=== PATIENT | female | born 1990 | race Caucasian/White ===

== ENCOUNTER 2018-05-26 09:39 | Emergency (ER) | payer OTHER ==
--- OUTSIDE RECORDS SUMMARY | 2018-05-26 09:45 | XMS REPORT | Clinical Summary ---
:1990 Author Organization [facility] Address [address] [place] [address] Care Team Providers Name Role Phone Tip Duran MD Primary Care Provider Allergies No Known Allergies Medications Medication Sig Dispensed Refills Start End Date Status Date dextroamphetamine- Take 20 mg by 0 Active amphetamine mouth daily. (ADDERALL) 20 mg tablet PNV NO.95/FERROUS Take by mouth. 0 Active FUM/FOLIC AC ( MULTIVITAMINS ORAL) CALCIUM CARB/VIT Take by mouth. 0 Active D3/MINERALS (CALCIUM-VITAMIN D ORAL) FERROUS SULFATE Take by mouth. 0 Active (IRON ORAL) ASCORBATE CALCIUM Take by mouth. 0 Active (VITAMIN C ORAL) omega-3s/dha/epa/f Take 1 capsule by 0 Active rio oil/D3 mouth daily. (VITAMIN-D + OMEGA-3 ORAL) UNABLE TO FIND Take 1 tablet by 0 Active mouth daily. OTC antihistamine L. rhamnosus Take 1 tablet by 0 Active GG/inulin mouth daily. (CULTURELLE PROBIOTICS ORAL) etonogestrel-ethin Insert 1 each 0 Active yl estradiol into the vagina (NUVARING) every 28 days. 0.12-0.015 mg/24 Insert vaginally hr vaginal ring and leave in place for 3 consecutive weeks, then remove for 1 week. cyanocobalamin Inject 1 mL 1 mL Active 1,000 mcg/mL (1,000 mcg total) 8 injectionIndicatio into the ns: Status post shoulder, thigh, bariatric surgery or buttocks every 30 (thirty) days. syringe-needle,saf 1 Syringe every 1 Syringe Active ety,disp unt 3 mL 30 (thirty) days. 8 23 gauge x 1 1/2" syringeIndications : Status post bariatric surgery omeprazole TAKE ONE CAPSULE 90 capsule 0 Active (PriLOSEC) 40 MG BY MOUTH DAILY 8 capsule ursodiol TAKE ONE CAPSULE 180 capsule 0 Active (ACTIGALL) 300 mg BY MOUTH TWICE A 8 capsule DAY metFORMIN Take 500 mg by 0 08/25/19 Discontinued (GLUCOPHAGE) 500 mouth daily with 18 mg tablet breakfast. norgestimate-ethin Take 1 tablet by 0 12/16/19 Discontinued yl estradiol mouth daily. 18 (SPRINTEC, 28,) 0.25-35 mg-mcg per tablet ursodiol Take 1 capsule 180 capsule 1 01/21/20 Discontinued (ACTIGALL) 300 mg (300 mg total) by 8 18 capsule mouth 2 (two) times a day for 180 days. omeprazole Take 1 capsule 90 capsule 1 01/10/20 Discontinued (PriLOSEC) 40 MG (40 mg total) by 8 18 capsule mouth daily for 180 days. enoxaparin Inject 0.4 mL (40 5.6 mL 0 07/29/19 (LOVENOX) 40 mg total) under 8 18 mg/0.4 mL syringe the skin daily for 14 days. traMADol (ULTRAM) Take 1 tablet (50 30 tablet 0 07/29/19 50 mg tablet mg total) by 8 18 mouth every 6 (six) hours as needed for moderate pain for up to 14 days. Saccharomyces Take 250 mg by 0 08/24/19 Discontinued boulardii mouth 2 (two) 18 (FLORASTOR) 250 mg times a day. capsule traMADol (ULTRAM) Take 1 tablet (50 21 tablet 0 09/01/19 50 mg tablet mg total) by 8 18 mouth every 6 (six) hours as needed for moderate pain for up to 7 days. enoxaparin Inject 0.4 mL (40 5.6 mL 0 09/08/19 (LOVENOX) 40 mg total) under 8 18 mg/0.4 mL syringe the skin daily for 14 days. ondansetron ODT Take 1 tablet (4 10 tablet 0 09/24/19 (ZOFRAN ODT) 4 MG mg total) by 8 18 disintegrating mouth every 8 tablet (eight) hours as needed for nausea or vomiting for up to 30 days. Active Problems Problem Noted Date S/P gastric bypass 03/15/2018 Last Assessment & Plan: The patient is doing very well status post. After bypass. The patient has lost 81 pounds in 6.6 months. The patient's labs were reviewed and no correction's were needed. The patient's weight goal of 160 pounds at her next visit in 6 months. Surgery follow-up examination 09/23/2017 Last Assessment & Plan: The patient will continue a regular bariatric diet. Increase water intake to at least 64 fluid ounces per day. She is instructed to continue her current exercise routine for at least 30 minutes per day. Lab results were discussed with Patient in detail. Bariatric labs ordered for next follow-up visit. Orders for monthly b12 injection sent to patient pharmacy. Weight goal of 175lbs at next visit. Livan gorman verbalized understanding and her questions were answered to her satisfaction. Patient was examined and evaluated with Dr. Valentin and he agrees with the above plan. Return to clinic in 3 months for next follow-up visit. Resolved Problems Problem Noted Date Resolved Date Morbid obesity with BMI of 40.0-44.9, adult 03/30/2017 12/15/2017 Last Assessment & Plan: The patient is tried and failed multiple nonsurgical attempts at weight loss and has recently finished her nutrition, and psychological preoperative appointments. Risks and benefits of a Geoff-en-Y gastric bypass were discussed with the patient and the patient agreed to proceed. The patient was given her preoperative Prilosec, Actigall, Lovenox, as well as tramadol. The patient was also given instructions on the day of surgery. Encounters Date Type Specialty Care Team Description 04/30/2018 Refill General Surgery Jasbir Valentin MD 04/06/2018 Refill General Surgery Jasbir Valentin MD 03/09/2018 Office Visit General Jasbir Padron, S/P gastric bypass (Primary Dx) 01/20/2018 Jasbir Haynes MD 01/09/2018 Jagdeep General Jasbir Padron MD 12/15/2017 Office Visit General Jasbir Padron, Status post bariatric surgery (Primary Dx); Surgery follow-up examination 11/22/2017 Orders Only General Surgery Crocker, Jeri, Bariatric surgery MA status (Primary Dx) 09/22/2017 Office Visit General Surgery Jasbir Valentin, Follow-up exam (Primary Dx) 09/01/2017 Office Visit General Surgery Jasbir Valentin, S/P gastric bypass (Primary Dx) 08/24/2017 Patient Outreach Quality Roxanne Montes De Oca RN 08/23/2017 Anesthesia Event General Surgery Gale Solis, DISTRIBUTION TECH 08/23/2017 Surgery General Surgery Jasbir Valentin, GASTROENTEROSTOMY, GEOFF-EN-Y, LAPAROSCOPIC INTRAOPERATIVE EGD 08/23/2017 - Hospital Encounter General Surgery Jasbir Valentin, 08/24/2017 08/09/2017 Pre-Admit Testing Pre-Admission Jasbir Valentin, Morbid obesity ( Primary Dx); Appointment Testing Morbid obesity due to excess calories 08/02/2017 Transcribe Orders General Surgery Josep Carballo MA 07/14/2017 Office Visit General Surgery Jasbir Valentin, Morbid obesity due to excess calories (Primary Dx); Morbid obesity with BMI of 40.0-44.9, adult 07/14/2017 Refill General Surgery Jasbir Valentin MD 06/16/2017 Consult Weight Management Jasbir Valentin, Morbid obesity (Primary Dx) Rolanda Zaragoza, ABDIRAHMAN after 05/25/2017 Family History Medical History Relation Name Comments Hypertension Brother Obesity Brother GERD Father Sleep apnea Father Heart attack Maternal Grandfather Hypertension Maternal Grandfather Heart failure Maternal Grandmother Hypertension Maternal Grandmother Hypertension Mother Obesity Mother Hypertension Paternal Grandfather Prostate cancer Paternal Grandfather Skin cancer Paternal Grandfather Diabetes Paternal Grandmother Hypertension Paternal Grandmother Relation Name Status Comments Brother Alive Father Alive Maternal Grandfather Maternal Grandmother Mother Alive Paternal Grandfather Alive Paternal Grandmother Alive Social History Tobacco Use Types Packs/Day Years Used Date Never Smoker Smokeless Tobacco: Never Used Tobacco Cessation: Counseling Given: No Alcohol Use Drinks/Week oz/Week Comments Yes 1-2 Standard drinks or equivalent 0.6 - 1.2 social 1-2 per week Sex Assigned at Date Recorded Not on file Job Start Date Occupation Industry Not on file Not on file Not on file Travel History Travel Start Travel End No recent travel history available. Last Filed Vital Signs Vital Sign Reading Time Taken Blood Pressure 109/60 03/09/2018 12:26 PM [facility] Pulse 63 03/09/2018 12:26 PM [facility] Temperature 36.4 C (97.5 F) 03/09/2018 12:26 PM [facility] Respiratory Rate 16 03/09/2018 12:26 PM [facility] Oxygen Saturation 98% 08/24/2017 7:05 AM CDT Inhaled Oxygen Concentration - - Weight 82.1 kg (181 lb) 03/09/2018 12:26 PM [facility] Height 170.2 cm (5' 7") 03/09/2018 12:26 PM [facility] Body Mass Index 28.35 03/09/2018 12:26 PM [facility] Plan of Treatment Date Type Specialty Care Team Description 09/07/2018 Office Visit General Surgery Jasbir Valentin MD [address] [address] Health Maintenance Due Date Last Done Comments DIABETIC RETINAL EYE EXAM 1990 DIABETIC FOOT EXAM 2000 URINE MICROALBUMIN 2000 CERVICAL CANCER SCREENING 2011 INFLUENZA VACCINE 10/26/2017 Procedures Procedure Name Priority Date/Time Associated Comments Diagnosis T3 Routine 02/25/2018 10:54 Status post Results for this AM [facility] bariatric surgery procedure are in the results section. ZINC LEVEL, SERUM Routine 02/25/2018 10:54 Status post Results for this AM [facility] bariatric surgery procedure are in the results section. VITAMIN B1 LEVEL, Routine 02/25/2018 10:54 Status post Results for this WHOLE BLOOD AM [facility] bariatric surgery procedure are in the results section. FERRITIN LEVEL Routine 02/25/2018 10:54 Status post Results for this AM [facility] bariatric surgery procedure are in the results section. FOLATE LEVEL Routine 02/25/2018 10:54 Status post Results for this AM [facility] bariatric surgery procedure are in the results section. COPPER LEVEL, SERUM Routine 02/25/2018 10:54 Status post Results for this AM [facility] bariatric surgery procedure are in the results section. VITAMIN D 25 HYDROXY Routine 02/25/2018 10:54 Status post Results for this LEVEL AM [facility] bariatric surgery procedure are in the results section. VITAMIN B12 LEVEL Routine 02/25/2018 10:54 Status post Results for this AM [facility] bariatric surgery procedure are in the results section. VITAMIN A LEVEL, Routine 02/25/2018 10:54 Status post Results for this PLASMA OR SERUM AM [facility] bariatric surgery procedure are in the results section. CBC WITH PLATELET AND Routine 02/25/2018 10:54 Status post Results for this DIFFERENTIAL AM [facility] bariatric surgery procedure are in the results section. PARATHYROID HORMONE Routine 02/25/2018 10:54 Status post Results for this AM [facility] bariatric surgery procedure are in the results section. HEMOGLOBIN A1C Routine 02/25/2018 10:54 Status post Results for this AM [facility] bariatric surgery procedure are in the results section. THYROID STIMULATING Routine 02/25/2018 10:54 Status post Results for this HORMONE AM [facility] bariatric surgery procedure are in the results section. T4, FREE Routine 02/25/2018 10:54 Status post Results for this AM [facility] bariatric surgery procedure are in the results section. TOTAL IRON BINDING Routine 02/25/2018 10:54 Status post Results for this CAPACITY AM [facility] bariatric surgery procedure are in the results section. LIPID PANEL Routine 02/25/2018 10:54 Status post Results for this AM [facility] bariatric surgery procedure are in the results section. COMPREHENSIVE Routine 02/25/2018 10:54 Status post Results for this METABOLIC PANEL AM [facility] bariatric surgery procedure are in the results section. T3 Routine 12/03/2017 9:46 Bariatric surgery Results for this AM CDT status procedure are in the results section. ZINC LEVEL, SERUM Routine 12/03/2017 9:46 Bariatric surgery Results for this AM CDT status procedure are in the results section. VITAMIN B1 LEVEL, Routine 12/03/2017 9:46 Bariatric surgery Results for this WHOLE BLOOD AM CDT status procedure are in the results section. FERRITIN LEVEL Routine 12/03/2017 9:46 Bariatric surgery Results for this AM CDT status procedure are in the results section. FOLATE LEVEL Routine 12/03/2017 9:46 Bariatric surgery Results for this AM CDT status procedure are in the results section. COPPER LEVEL, SERUM Routine 12/03/2017 9:46 Bariatric surgery Results for this AM CDT status procedure are in the results section. VITAMIN D 25 HYDROXY Routine 12/03/2017 9:46 Bariatric surgery Results for this LEVEL AM CDT status procedure are in the results section. VITAMIN B12 LEVEL Routine 12/03/2017 9:46 Bariatric surgery Results for this AM CDT status procedure are in the results section. VITAMIN A LEVEL, Routine 12/03/2017 9:46 Bariatric surgery Results for this PLASMA OR SERUM AM CDT status procedure are in the results section. CBC WITH PLATELET AND Routine 12/03/2017 9:46 Bariatric surgery Results for this DIFFERENTIAL AM CDT status procedure are in the results section. PARATHYROID HORMONE Routine 12/03/2017 9:46 Bariatric surgery Results for this AM CDT status procedure are in the results section. HEMOGLOBIN A1C Routine 12/03/2017 9:46 Bariatric surgery Results for this AM CDT status procedure are in the results section. THYROID STIMULATING Routine 12/03/2017 9:46 Bariatric surgery Results for this HORMONE AM CDT status procedure are in the results section. T4, FREE Routine 12/03/2017 9:46 Bariatric surgery Results for this AM CDT status procedure are in the results section. TOTAL IRON BINDING Routine 12/03/2017 9:46 Bariatric surgery Results for this CAPACITY AM CDT status procedure are in the results section. LIPID PANEL Routine 12/03/2017 9:46 Bariatric surgery Results for this AM CDT status procedure are in the results section. COMPREHENSIVE Routine 12/03/2017 9:46 Bariatric surgery Results for this METABOLIC PANEL AM CDT status procedure are in the results section. ZZESTIMATED GFR Routine 08/24/2017 5:15 Results for this AM CDT procedure are in the results section. BASIC METABOLIC PANEL Routine 08/24/2017 5:15 Results for this AM CDT procedure are in the results section. HC COMPLETE BLD COUNT Routine 08/24/2017 5:00 Results for this W/AUTO DIFF AM CDT procedure are in the results section. ZZESTIMATED GFR Routine 08/23/2017 3:40 Results for this PM CDT procedure are in the results section. HC COMPLETE BLD COUNT Routine 08/23/2017 3:40 Results for this W/AUTO DIFF PM CDT procedure are in the results section. BASIC METABOLIC PANEL Routine 08/23/2017 3:40 Results for this PM CDT procedure are in the results section. POC GLUCOSE Routine 08/23/2017 3:39 Results for this PM CDT procedure are in the results section. OR AN ELECTIVE Routine 08/23/2017 11:09 ENDOTRACHEAL AIRWAY AM CDT Procedure Note - Lauren Luis, ADENIKE - 08/23/2017 11:09 AM CDT Airway Date/Time: 08/23/2017 11:00 AM Performed by: LAUREN LUIS Authorized by: GUSTABO NOLASCO Location: OR Urgency: Elective Difficult Airway: No Preoxygenated with 100% O2: Yes C-spine Precautions Maintained Throughout: Yes Mask Ventilation: Easy mask Final Airway Type: Endotracheal airway Final Endotracheal Airway: ETT Cuffed: Yes Technique Used: Direct laryngoscopy Devices/Methods Used in Placement: Intubating stylet Insertion Site: Oral Blade Type: Read Laryngoscope Blade/Videolaryngoscope Blade Size: 2 ETT Size (mm): 7.0 Cuff at minimum occlusion pressure: Yes Measured from: Teeth ETT to Teeth (cm): 21 Placement Verified by: CO2 detection, direct visualization and equal breath sounds Laryngoscopic view: Grade I - full view of glottis Rapid Sequence Induction (RSI): No Modified RSI: No Number of Attempts at Approach: 1 GASTROENTEROSTOMY, GEOFF-EN-Y, 08/23/2017 10:15 AM Extreme obesity LAPAROSCOPIC, WITH CDT Diabetes mellitus without INTRAOPERATIVE ENDOSCOPY complication Heart murmur Special Needs BMI 40.50 POC GLUCOSE Routine 08/23/2017 9:25 AM Results for this CDT procedure are in the results section. TYPE AND SCREEN Routine 08/09/2017 10:32 AM Results for this CDT procedure are in the results section. PHOSPHORUS LEVEL Routine 08/06/2017 12:00 AM Morbid obesity Results for this CDT due to excess procedure are in calories the results section. MAGNESIUM LEVEL Routine 08/06/2017 12:00 AM Morbid obesity Results for this CDT due to excess procedure are in calories the results section. VITAMIN E LEVEL, PLASMA Routine 08/06/2017 12:00 AM Morbid obesity Results for this OR SERUM CDT due to excess procedure are in calories the results section. URINALYSIS, AUTOMATED Routine 08/06/2017 12:00 AM Morbid obesity Results for this WITH MICROSCOPY CDT due to excess procedure are in calories the results section. C-REACTIVE PROTEIN Routine 08/06/2017 12:00 AM Morbid obesity Results for this CDT due to excess procedure are in calories the results section. INSULIN, RANDOM Routine 08/06/2017 12:00 AM Morbid obesity Results for this CDT due to excess procedure are in calories the results section. T3 Routine 08/06/2017 12:00 AM Morbid obesity Results for this CDT due to excess procedure are in calories the results section. ZINC LEVEL, SERUM Routine 08/06/2017 12:00 AM Morbid obesity Results for this CDT due to excess procedure are in calories the results section. VITAMIN B1 LEVEL, WHOLE Routine 08/06/2017 12:00 AM Morbid obesity Results for this BLOOD CDT due to excess procedure are in calories the results section. FOLATE LEVEL Routine 08/06/2017 12:00 AM Morbid obesity Results for this CDT due to excess procedure are in calories the results section. COPPER LEVEL, SERUM Routine 08/06/2017 12:00 AM Morbid obesity Results for this CDT due to excess procedure are in calories the results section. VITAMIN D 25 HYDROXY Routine 08/06/2017 12:00 AM Morbid obesity Results for this LEVEL CDT due to excess procedure are in calories the results section. VITAMIN B12 LEVEL Routine 08/06/2017 12:00 AM Morbid obesity Results for this CDT due to excess procedure are in calories the results section. VITAMIN A LEVEL, PLASMA Routine 08/06/2017 12:00 AM Morbid obesity Results for this OR SERUM CDT due to excess procedure are in calories the results section. PARTIAL THROMBOPLASTIN Routine 08/06/2017 12:00 AM Morbid obesity Results for this TIME (PTT) CDT due to excess procedure are in calories the results section. PROTHROMBIN TIME WITH Routine 08/06/2017 12:00 AM Morbid obesity Results for this INR CDT due to excess procedure are in calories the results section. CBC WITH PLATELET AND Routine 08/06/2017 12:00 AM Morbid obesity Results for this DIFFERENTIAL CDT due to excess procedure are in calories the results section. PARATHYROID HORMONE Routine 08/06/2017 12:00 AM Morbid obesity Results for this CDT due to excess procedure are in calories the results section. HEMOGLOBIN A1C Routine 08/06/2017 12:00 AM Morbid obesity Results for this CDT due to excess procedure are in calories the results section. THYROID STIMULATING Routine 08/06/2017 12:00 AM Morbid obesity Results for this HORMONE CDT due to excess procedure are in calories the results section. T4, FREE Routine 08/06/2017 12:00 AM Morbid obesity Results for this CDT due to excess procedure are in calories the results section. TOTAL IRON BINDING Routine 08/06/2017 12:00 AM Morbid obesity Results for this CAPACITY CDT due to excess procedure are in calories the results section. HCG QUALITATIVE, SERUM Routine 08/06/2017 12:00 AM Morbid obesity Results for this SCREEN CDT due to excess procedure are in calories the results section. LIPID PANEL Routine 08/06/2017 12:00 AM Morbid obesity Results for this CDT due to excess procedure are in calories the results section. COMPREHENSIVE METABOLIC Routine 08/06/2017 12:00 AM Morbid obesity Results for this PANEL CDT due to excess procedure are in calories the results section. FERRITIN LEVEL Routine 08/06/2017 12:00 AM Morbid obesity Results for this CDT due to excess procedure are in calories the results section. after 05/25/2017 Results Total iron binding capacity (02/25/2018 10:54 AM [facility])Only the most recent of3 resultswithin the time period is included. Iron level 152 40 - 190 mcg/dL [facility] [place] Iron binding capacity 482 (H) 250 - 450 mcg/dL (calc) [facility] [place] Iron saturation 32 11 - 50 % (calc) [facility] [place] Specimen Blood Narrative Performed At FASTING:YES QUEST FASTING: YES Resulting Agency Comment Performing Organization Information: Site ID: [id number] Name: [facility] Address: [address] [place] [id number] Director: Sammie Bueno Performing Organization Address City/[facility] Phone Number [facility] [address] [place] [phone] Copper level, serum (02/25/2018 10:54 AM [facility])Only the most recent of3 resultswithin the time period is included. Copper 242 (H) 70 - 175 mcg/dL [facility] Comment: RYAN This test was developed and its analytical performance characteristics have been determined by [facility]. It has not been cleared or approved by the [place] Food and Drug Administration. This assay has been validated pursuant to the CLIA regulations and is used for clinical purposes. COPPER Confirmed by repeat analysis. Specimen Blood Narrative Performed At FASTING:YES QUEST FASTING: YES Resulting Agency Comment Performing Organization Information: Site ID: [id number] Name: [facility] Address: [address] [place] [address] Director: Isiah House M.D., Ph.D Performing Organization Address [facility] [place] Phone Number [facility] [address] [place] [address] Vitamin B1 level, whole blood (02/25/2018 10:54 AM [facility])Only the most recent of3 resultswithin the time period is included. Vitamin B1, whole 126 78 - 185 nmol/L [facility] blood Comment: ARNOLD DAVIS Vitamin supplementation within 24 hours prior to blood draw may affect the accuracy of results. This test was developed and its analytical performance characteristics have been determined [facility]. It has not been cleared or approved by FDA. This assay has been validated pursuant to the CLIA regulations and is used for clinical purposes. Specimen Blood Narrative Performed At FASTING:YES QUEST FASTING: YES Resulting Agency Comment Performing Organization Information: Site ID: [facility] Name: [facility] Address: [address] [place], [place] [phone] Director: Isiah House M.D., Ph.D Performing Organization Address [facility] [place] [address] Zinc level, serum (02/25/2018 10:54 AM [facility])Only the most recent of3 resultswithin the time period is included. Zinc 112 60 - 130 mcg/dL [facility] Comment: RYAN This test was developed and its analytical performance characteristics have been determined by [facility]. It has not been cleared or approved by the [place] Food and Drug Administration. This assay has been validated pursuant to the CLIA regulations and is used for clinical purposes. Specimen Blood Narrative Performed At FASTING:YES QUEST FASTING: YES Resulting Agency Comment Performing Organization Information: Site ID: [facility] Name: [facility] Address: [address] [place], [place] [phone] Director: Isiah House M.D., Ph.D Performing Organization Address [facility] [place] [address] Vitamin A level, plasma or serum (02/25/2018 10:54 AM [facility])Only the most recent of3 resultswithin the time period is included. Vitamin A (retinol) 72 38 - 98 mcg/dL [facility] Comment: ARNOLD DAVIS Clin Chem Vol. 34.No.8. [id number]. 1998 Vitamin supplementation within 24 hours prior to blood draw may affect the accuracy of results. This test was developed and its analytical performance characteristics have been determined by [facility]. It has not been cleared or approved by the [place] Food and Drug Administration. This assay has been validated pursuant to the CLIA regulations and is used for clinical purposes. Specimen Blood Narrative Performed At FASTING:YES QUEST FASTING: YES Resulting Agency Comment Performing Organization Information: Site ID: [id number] Name: [facility] Address: [address] [place] [id number] Director: Isiah House M.D., Ph.D Performing Organization Address City/[facility] Phone Number [facility] [address] [address] [phone] Vitamin D 25 hydroxy level (02/25/2018 10:54 AM [facility])Only the most recent of3 resultswithin the time period is included. Vitamin D, 25-hydroxy 53 30 - 100 ng/mL [employer] Comment: [place] Vitamin D Status 25-OH Vitamin D: Deficiency:<20 ng/mL Insufficiency: 20 - 29 ng/mL Optimal: > or=30 ng/mL For 25-OH Vitamin D testing on patients on D2-supplementation and patients for whom quantitation of D2 and D3 fractions is required, the QuestAssureD(TM) 25-OH VIT D, (D2,D3), LC/MS/MS is recommended: order code 23386 (patients >2yrs). For more information on this test, go to: http://education.Tutor Universe/faq/MIR528 (This link is being provided for informational/educational purposes only.) Specimen Blood Narrative Performed At FASTING:YES QUEST FASTING: YES Resulting Agency Comment Performing Organization Information: Site ID: [id number] Name: [facility] Address: [address] [place] [address] Director: Sammie Bueno Performing Organization Address [facility]/Zipcode Phone Number [facility] [address] [address] CBC with platelet and differential (02/25/2018 10:54 AM MOSS BLEACHER)Only the most recent of5 resultswithin the time period is included. WBC 6.1 3.8 - 10.8 Thousand/uL [facility] RBC 4.39 3.80 - 5.10 Million/uL [facility] HGB 12.9 11.7 - 15.5 g/dL [facility] HCT 38.4 35.0 - 45.0 % [employer] [place] MCV 87.5 80.0 - 100.0 fL [employer] [place] MCH 29.4 27.0 - 33.0 pg [employer] [place] MCHC 33.6 32.0 - 36.0 g/dL [employer] [facility] [place] RDW 12.2 11.0 - 15.0 % [employer] [place] Platelet count 260 140 - 400 Thousand/uL [facility] [place] MPV 11.6 7.5 - 12.5 fL [employer] [place] Neutrophils, absolute 3,288 1,500 - 7,800 cells/uL [employer] [place] Lymphocytes, absolute 2,434 850 - 3,900 cells/uL [employer] [place] Monocytes, absolute 299 200 - 950 cells/uL [employer] [place] Eosinophils, absolute 18 15 - 500 cells/uL [employer] [facility] [place] Basophils, absolute 61 0 - 200 cells/uL [employer] [place] Neutrophils 53.9 % [employer] [place] Lymphocytes 39.9 % [employer] [place] Monocytes 4.9 % [employer] [place] Eosinophils 0.3 % [employer] [place] Basophils + RC 1.0 % [employer] [place] Specimen Blood Narrative Performed At FASTING:YES QUEST FASTING: YES Resulting Agency Comment Performing Organization Information: Site ID: RGA Name: [facility] Address: [address] [place] [phone] Director: Sammie Bueno Performing Organization Address City/State/Zipcode Phone Number [facility] [place] [address] [place] [address] T3 (02/25/2018 10:54 AM MOSS BLEACHER)Only the most recent of3 resultswithin the time period is included. T3 140 76 - 181 ng/dL [facility] [place] Specimen Blood Narrative Performed At FASTING:YES QUEST FASTING: YES Resulting Agency Comment Performing Organization Information: Site ID: RGA Name: [facility] Address: [address] [place] [phone] Director: Sammie Bueno Performing Organization Address City/State/Zipcode Phone Number [facility] [place] [address] [place] [address] Thyroid stimulating hormone (02/25/2018 10:54 AM MOSS BLEACHER)Only the most recent of3 resultswithin the time period is included. TSH 0.86 mIU/L [employer] [facility] [place] Comment: Reference Range > or=20 Years0.40-4.50 Ranges First trimester0.26-2.66 Second trimester 0.55-2.73 Third trimester0.43-2.91 Specimen Blood Narrative Performed At FASTING:YES QUEST FASTING: YES Resulting Agency Comment Performing Organization Information: Site ID: RGA Name: [facility] Address: [address] [place] [phone] Director: Sammie Bueno Performing Organization Address [facility] [place] [address] T4, free (02/25/2018 10:54 AM MOSS BLEACHER)Only the most recent of3 resultswithin the time period is included. T4, free 1.1 0.8 - 1.8 ng/dL [facility] [place] Specimen Blood Narrative Performed At FASTING:YES QUEST FASTING: YES Resulting Agency Comment Performing Organization Information: Site ID: RGA Name: [facility] Address: [address] [place] [phone] Director: Sammie Bueno Performing Organization Address [facility] [place] Phone Number [facility] [place] [address] Parathyroid hormone (02/25/2018 10:54 AM MOSS BLEACHER)Only the most recent of3 resultswithin the time period is included. PTH 15 14 - 64 pg/mL [facility] Comment: II Interpretive GuideIntact PTH Calcium ------- Normal ParathyroidNormal Normal HypoparathyroidismLow or Low NormalLow Hyperparathyroidism PrimaryNormal or High High SecondaryHigh Normal or Low Tertiary High High Non-Parathyroid HypercalcemiaLow or Low NormalHigh Specimen Blood Narrative Performed At FASTING:YES QUEST FASTING: YES Resulting Agency Comment Performing Organization Information: Site ID: [id number] Name: [facility] Address: [address] [place] [address] Director: Dr. Victorino Yepez Performing Organization Address City/State/[facility] Mexicocode Phone Number [facility] II [address] [place] [address] Hemoglobin A1c (02/25/2018 10:54 AM MOSS BLEACHER)Only the most recent of3 resultswithin the time period is included. Hemoglobin A1C 5.0 <5.7 % of total Hgb [employer] [place] Comment: For the purpose of screening for the presence of diabetes: <5.7% Consistent with the absence of diabetes 5.7-6.4%Consistent with increased risk for diabetes (prediabetes) > or=6.5%Consistent with diabetes This assay result is consistent with a decreased risk of diabetes. Currently, no consensus exists regarding use of hemoglobin A1c for diagnosis of diabetes in children. According to [place] Diabetes Association (ADA) guidelines, hemoglobin A1c <7.0% represents optimal control in non- diabetic patients. Different metrics may apply to specific patient populations. Standards of Medical Care in Diabetes(ADA). Specimen Blood Narrative Performed At FASTING:YES QUEST FASTING: YES Resulting Agency Comment Performing Organization Information: Site ID: RGA Name: [facility] Address: [address] [place] [phone] Director: Sammie Bueno Performing Organization Address [facility] [place] Phone Number [facility] [address] [address] Folate level (02/25/2018 10:54 AM MOSS BLEACHER)Only the most recent of3 resultswithin the time period is included. Folate 11.5 ng/mL [employer] [facility] [place] Comment: Reference Range Low: <3.4 Borderline:3.4- 5.4 Normal:> 5.4 Specimen Blood Narrative Performed At FASTING:YES QUEST FASTING: YES Resulting Agency Comment Performing Organization Information: Site ID: RGA Name: [facility] Address: [address] [place] [phone] Director: Sammie Bueno Performing Organization Address [facility] [place] Phone Number [facility] [address] [address] Ferritin level (02/25/2018 10:54 AM MOSS BLEACHER)Only the most recent of3 resultswithin the time period is included. Ferritin level 33 10 - 154 ng/mL [employer] [facility] [place] Specimen Blood Narrative Performed At FASTING:YES QUEST FASTING: YES Resulting Agency Comment Performing Organization Information: Site ID: [id number] Name: [facility] Address: [address] [place] [phone] Director: Sammie Bueno Performing Organization Address [facility] Mexic[facility]ode Phone Number [facility] [place] [address] Vitamin B12 level (02/25/2018 10:54 AM MOSS BLEACHER)Only the most recent of3 resultswithin the time period is included. Vitamin B12 779 200 - 1,100 pg/mL [employer] [facility] [place] Specimen Blood Narrative Performed At FASTING:YES QUEST FASTING: YES Resulting Agency Comment Performing Organization Information: Site ID: [id number] Name: [facility] Address: [address] [place] [phone] Director: Sammie Bueno Performing Organization Address [facility]oid Phone Number [facility] [place] [address] Lipid panel (02/25/2018 10:54 AM MOSS BLEACHER)Only the most recent of3 resultswithin the time period is included. Cholesterol, total 193 <200 mg/dL [facility] HDL cholesterol 80 >50 mg/dL [facility] Triglycerides 92 <150 mg/dL [facility] LDL cholesterol 94 mg/dL (calc) [facility] calculated Comment: [place] Reference range: <100 Desirable range <100 mg/dL for primary prevention; <70 mg/dL for patients with CHD or diabetic patients with > or=2 CHD risk factors. LDL-C is now calculated using the Kne-Elissa calculation, which is a validated novel method providing better accuracy than the Friedewald equation in the estimation of LDL-C. Ken SS et al. NEVA. 2013;310(19): 8264-9801 (http://education.Shoot it!.Audium [employer]/faq/YLN318) Cholesterol/HDL ratio 2.4 <5.0 (calc) [facility] Non-HDL cholesterol 113 <130 mg/dL [facility] Comment: (calc) [place] For patients with diabetes plus 1 major ASCVD risk factor, treating to a non-HDL-C goal of <100 mg/dL (LDL-C of <70 mg/dL) is considered a therapeutic option. Specimen Blood Narrative Performed At FASTING:YES QUEST FASTING: YES Resulting Agency Comment Performing Organization Information: Site ID: [id number] Name: [facility] Address: [address] [place] [phone] Director: Sammie Bueno Performing Organization Address City/State/Zipcode Phone Number AURELIO [employer] [place] [address] [place] [address] Comprehensive metabolic panel (02/25/2018 10:54 AM MOSS BLEACHER)Only the most recent of3 resultswithin the time period is included. Glucose 87 65 - 99 mg/dL [employer] Comment: [place] Fasting reference interval BUN, whole blood 10 7 - 25 mg/dL [employer] [facility] [place] Creatinine 0.73 0.50 - 1.10 mg/dL [employer] [facility] [place] EGFR Non-Afr. Mauritian 113 > OR=60 [facility] mL/min/1.73m2 [place] EGFR 131 > OR=60 [facility] mL/min/1.73m2 [place] BUN/creatinine ratio NOT APPLICABLE 6 - 22 (calc) [employer] [facility] [place] Sodium 138 135 - 146 mmol/L [facility] [place] Potassium 4.1 3.5 - 5.3 mmol/L [facility] [place] Chloride 104 98 - 110 mmol/L [facility] [place] CO2 25 20 - 32 mmol/L [employer] [facility] [place] Calcium 9.3 8.6 - 10.2 mg/dL [facility] [place] Protein 6.6 6.1 - 8.1 g/dL [facility] [place] Albumin, S 4.2 3.6 - 5.1 g/dL [facility] [facility] [place] Globulin, total 2.4 1.9 - 3.7 g/dL [employer] (calc) [place] Albumin/globulin ratio 1.8 1.0 - 2.5 (calc) [employer] [facility] [place] Total bilirubin 0.5 0.2 - 1.2 mg/dL [employer] [facility] [place] Alkaline phosphatase 78 33 - 115 U/L [employer] [facility] [place] AST 12 10 - 30 U/L [employer] [facility] [place] ALT 10 6 - 29 U/L [facility] [facility] [place] Specimen Blood Narrative Performed At FASTING:YES QUEST FASTING: YES Resulting Agency Comment Performing Organization Information: Site ID: [id number] Name: [facility] Address: [address] [place] [phone] Director: Sammie Bueno Performing Organization Address City/State/Zipcode Phone Number [facility] [place] [phone] Estimated GFR (08/24/2017 5:15 AM CDT)Only the most recent of2 resultswithin the time period is included. GFR Non Af Amer >90 mL/min/1.73 m2 [facility] DEPARTMENT OF PATHOLOGY AND GENOMIC MEDICINE GFR Af Amer >90 mL/min/1.73 m2 [facility] DEPARTMENT OF Comment: PATHOLOGY AND [employer] Chronic kidney disease: <60 mL/min/1.73m2 MEDICINE Kidney failure: <15 mL/min/1.73m2 The estimated GFR is calculated from the IDMS-traceable Modification of Diet in Renal Disease Equation. The accuracy of the calculation is poor when the creatinine is normal. Calculated values >90 mL/min/1.73m2 are not reported. This equation has not been validated in children (<18 years), women, the elderly (>70 years), or ethnic groups other than Caucasians and Americans. Specimen Plasma specimen Performing Organization Address City/[facility] Mexic[facility]ode Phone Number [facility] DEPARTMENT OF PATHOLOGY AND [address] [place] [address] [employer] [facility] Basic metabolic panel (08/24/2017 5:15 AM CDT)Only the most recent of2 resultswithin the time period is included. Sodium 140 135 - 148 mEq/L [facility] DEPARTMENT OF PATHOLOGY AND GENOMIC MEDICINE Potassium 4.2 3.5 - 5.0 mEq/L [facility] DEPARTMENT OF PATHOLOGY AND GENOMIC MEDICINE Chloride 102 98 - 112 mEq/L [facility] DEPARTMENT OF PATHOLOGY AND GENOMIC MEDICINE CO2 25 24 - 31 mEq/L [facility] DEPARTMENT OF PATHOLOGY AND GENOMIC MEDICINE Anion gap 13@ANIO 7 - 15 mEq/L [facility] DEPARTMENT OF PATHOLOGY AND GENOMIC MEDICINE BUN 7 6 - 20 mg/dL [facility] DEPARTMENT OF PATHOLOGY AND GENOMIC MEDICINE Creatinine 0.6 0.5 - 0.9 mg/dL [facility] DEPARTMENT OF PATHOLOGY AND GENOMIC MEDICINE Glucose 100 (H) 65 - 99 mg/dL [facility] DEPARTMENT OF PATHOLOGY AND GENOMIC MEDICINE Calcium 8.6 8.3 - 10.2 mg/dL [facility] DEPARTMENT OF PATHOLOGY AND GENOMIC MEDICINE Specimen Plasma specimen Performing Organization Address City/State/Zipcode Phone Number [facility] DEPARTMENT OF PATHOLOGY AND [address] [place] [address] [employer] MEDICINE POC glucose (08/23/2017 3:39 PM CDT)Only the most recent of2 resultswithin the time period is included. POC glucose 134 (H) 65 - 99 mg/dL [facility] DEPARTMENT OF PATHOLOGY AND Comment: [employer] Meter ID: [id number] Reservations Clerk: Marie Payan Performing Organization Address City/[facility] Mex[facility]ode Phone Number [facility] DEPARTMENT OF PATHOLOGY AND [address] [place] [address] GENOMIC MEDICINE Type and screen (08/09/2017 10:32 AM CDT) ABO grouping O [facility] DEPARTMENT OF PATHOLOGY AND GENOMIC MEDICINE Rh type POS [facility] DEPARTMENT OF PATHOLOGY AND GENOMIC MEDICINE Antibody screen (gel) NEG [facility] DEPARTMENT OF PATHOLOGY AND GENOMIC MEDICINE Performing Organization Address [facility] Mex[facility]ode Phone Number [facility] DEPARTMENT OF PATHOLOGY AND [address] [place] [address] [employer] Insulin, random (08/06/2017 12:00 AM CDT) Insulin 10.9 2.0 - 19.6 uIU/mL [employer] Comment: This insulin assay shows strong cross-reactivity for some insulin analogs (lispro, aspart, and glargine) and much lower cross-reactivity with others (detemir, glulisine). Specimen Blood Narrative Performed At FASTING:YES QUEST FASTING: YES Resulting Agency Comment Performing Organization Information: Site ID: [id number] Name: [facility] Address: [address] [place] [phone] Director: Dr. Victorino Yepez Performing Organization Address City/[facility] Mex[facility]ocode Phone Number [facility] [address] Urinalysis, automated with microscopy (08/06/2017 12:00 AM CDT) Color, UA YELLOW YELLOW [facility] [place] Appearance CLEAR CLEAR [facility] [place] Specific gravity, urine 1.025 1.001 - 1.035 [facility] [place] pH, urine 7.0 5.0 - 8.0 [facility] [place] Glucose, urine NEGATIVE NEGATIVE [facility] [place] Bilirubin, UA NEGATIVE NEGATIVE [facility] [place] Ketones, UA NEGATIVE NEGATIVE [facility] [place] Occult blood, urine NEGATIVE NEGATIVE [facility] [place] Protein, UA NEGATIVE NEGATIVE [facility] [place] Nitrite, UA NEGATIVE NEGATIVE [facility] Leukocyte esterase, UA NEGATIVE NEGATIVE [facility] [place] WBC, UA 0-5 < OR=5 /HPF [facility] [place] RBC, UA NONE SEEN < OR=2 /HPF [facility] [place] Squamous epithelial cells, UA 10-20 (A) < OR=5 /HPF [facility] [place] Bacteria, UA NONE SEEN NONE SEEN /HPF [facility] [place] Hyaline casts, UA NONE SEEN NONE SEEN /LPF [facility] [place] Specimen Urine Narrative Performed At FASTING:YES QUEST FASTING: YES Resulting Agency Comment Performing Organization Information: Site ID: A Name: [facility] Address: [address] [place] [phone] Director: Sammie Bueno Performing Organization Address [facility]oid Phone Number [facility] [place] [address] Partial thromboplastin time, activated (08/06/2017 12:00 AM CDT) PTT 27 22 - 34 sec [facility] [facility] [place] Comment: This test has not been validated for monitoring unfractionated heparin therapy. For testing that is validated for this type of therapy, please refer to the Heparin Anti-Xa assay (test code 73546). For additional information, please refer to http://Joyus.Omniata/faq/TOS877 (This link is being provided for informational/educational purposes only.) Specimen Blood Narrative Performed At FASTING:YES QUEST FASTING: YES Resulting Agency Comment Performing Organization Information: Site ID: A Name: [facility] Address: [address] [place] [phone] Director: Sammie Bueno Performing Organization Address [facility] Phone Number [facility] [address] [address] Prothrombin time with INR (08/06/2017 12:00 AM CDT) INR 0.9 [facility] [place] Comment: Reference Range 0.9-1.1 Moderate-intensity Warfarin Therapy 2.0-3.0 Higher-intensity Warfarin Therapy 3.0-4.0 Prothrombin time 9.8 9.0 - 11.5 sec [facility] [place] Comment: For more information on this test, go to: http://education.Tutor Universe/faq/APQ186 Specimen Blood Narrative Performed At FASTING:YES QUEST FASTING: YES Resulting Agency Comment Performing Organization Information: Site ID: [id number] Name: [facility] Address: [address] [place] [address] Director: Sammie Beuno Performing Organization Address [facility] [place] [address] C-reactive protein (08/06/2017 12:00 AM CDT) CRP 10.9 (H) <8.0 mg/L [facility] [place] Specimen Blood Narrative Performed At FASTING:YES QUEST FASTING: YES Resulting Agency Comment Performing Organization Information: Site ID: REDD Name: [facility] Address: [address] [place] [address] Director: Sammie Bueno Performing Organization Address [facility] [place] Phone Number [facility] [place] [address] hCG qualitative, serum screen (08/06/2017 12:00 AM CDT) hCG qualitative, serum NEGATIVE See Note: [employer] [facility] [place] Comment: Reference Range: Reference Range Non-: Negative : Positive Specimen Blood Narrative Performed At FASTING:YES QUEST FASTING: YES Resulting Agency Comment Performing Organization Information: Site ID: REDD Name: [facility] Address: [address] [place] [address] Director: Sammie Bueno Performing Organization Address [facility] [place] [address] Vitamin E level, plasma or serum (08/06/2017 12:00 AM CDT) Alpha-tocopherol mg/L 14.1 5.7 - 19.9 mg/L [facility] Comment: [place] Pediatric Term Infants (Cord Blood) 1.8 - 5.8 mg/L Levels of alpha-tocopherol < 5 mg/L are consistent with Vitamin E deficiency in adults Gamma-tocopherol mg/L 1.1 <4.4 mg/L [facility] Comment: [place] Vitamin supplementation within 24 hours prior to blood draw may affect the accuracy of results. This test was developed and its analytical performance characteristics have been determined by [facility]. It has not been cleared or approved by the US Food and Drug Administration. This assay has been validated persuant to the CLIA regulations and is used for clinical purposes. Specimen Blood Narrative Performed At FASTING:YES QUEST FASTING: YES Resulting Agency Comment Performing Organization Information: Site ID: SLI [facility]: [facility] Address: [address] [place] [phone] Director: Isiah House M.D., Ph.D Performing Organization Address [facility] Phone Number [facility] [employer] [address] [address] [phone] Phosphorus level (08/06/2017 12:00 AM CDT) Phosphorus 2.9 2.5 - 4.5 mg/dL [facility] [place] Specimen Blood Narrative Performed At FASTING:YES QUEST FASTING: YES Resulting Agency Comment Performing Organization Information: Site ID: RGA Name: [facility] Address: [address] [place] [phone] Director: Sammie Bueno Performing Organization Address [facility] [place] Phone Number [facility] [address] [address] Magnesium level (08/06/2017 12:00 AM CDT) Magnesium 2.0 1.5 - 2.5 mg/dL [facility] [place] Specimen Blood Narrative Performed At FASTING:YES QUEST FASTING: YES Resulting Agency Comment Performing Organization Information: Site ID: RGA Name: [facility] Address: [address] [place] [phone] Director: Sammie Bueno Performing Organization Address [facility] [place] Phone Number [facility] [address] [address] after 05/25/2017 Insurance Payer Benefit Plan / Group Subscriber ID Type Phone Address [facility] xxxxxxxxxxx (Home) [place] [address] Advance Directives Patient has advance care planning documents on file. For more information, please contact:Arnulfo [id number] [place] [address]
--- OUTSIDE RECORDS SUMMARY | 2018-05-26 09:46 | XMS REPORT | Clinical Summary ---
:1990 Author Organization [facility] Address [address] [place] [address] Care Team Providers Name Role Phone Bharat Griffin MD Primary Care Provider Allergies No Known Allergies Medications Medication Sig Dispensed Refills Start Date End Date Status norgestimate-ethinyl Take 1 tablet by 84 tablet 4 01/08/2016 Active estradiol (ORTHO-CYCLEN) mouth daily. 0.25-35 mg-mcg per tabletIndications: Encounter for surveillance of contraceptive pills metFORMIN (GLUCOPHAGE) TAKE ONE TABLET 30 tablet 0 04/13/2017 Active 500 MG BY MOUTH DAILY tabletIndications: PCOD (polycystic ovarian disease) Active Problems Problem Noted Date PCOD (polycystic ovarian disease) 11/04/2015 ADD (attention deficit disorder) 11/04/2015 Obesity, Class II, BMI 35-39.9, isolated 11/04/2015 Immunizations Name Dates Previously Given Next Due Influenza TIV (IM) 12/10/2014 Family History Medical History Relation Name Comments Unremarkable Father Unremarkable Mother Diabetes Paternal Grandmother Relation Name Status Comments Father Alive Mother Alive Paternal Grandmother Social History Tobacco Use Types Packs/Day Years Used Date Never Smoker Smokeless Tobacco: Never Used Alcohol Use Drinks/Week oz/Week Comments No Sex Assigned at Date Recorded Not on file Job Start Date Occupation Industry Not on file Not on file Not on file Travel History Travel Start Travel End No recent travel history available. Last Filed Vital Signs Not on file Plan of Treatment Health Maintenance Due Date Last Done Comments INFLUENZA VACCINE 12/26/2017 Results Not on fileafter 05/25/2017 Insurance Payer Benefit Plan / Group Subscriber ID Type Phone Address [facility] xxxxxxxxx Other Govt ([facility], [place], [place], [employer], etc.) # (Home) [address] [place] [address]
[2018-05-26] MEDS ORDERED: MORPHINE 4 MG/ML SYR ONE ×2 (10:19→11:19)
[2018-05-26] MEDS ORDERED: NA CHLORIDE 0.9% 1,000 ML ONE ×2 (10:20→15:18)
[2018-05-26] MEDS ORDERED: ONDANSETRON 4 MG/2 ML VIAL ONE ×2 (10:20→15:23)
[2018-05-26 10:33] LABS: Absolute Lymphocytes (CBC) 1.7 K/uL (0.7-4.9); Absolute Monocytes 0.3 K/uL (0.1-1.3); Absolute Neutrophil 6.7 K/uL (1.8-8.0); Basophils % 0.3 % (0-1.3); Eosinophils % 0.2 % (0-4.4); Hematocrit 39.5 % (36.0-45.0); Lymphocytes % 19.8 % (15.3-44.8); MPV 9.5 fL (7.6-11.3); Monocytes % 3.6 % (3.3-12.3); RBC Red Blood Cell Count 4.58 M/uL (3.86-4.86)
[2018-05-26 10:43] LABS: Urine Blood TRACE (NEG); Urine Glucose NEGATIVE (NEG); Urine Protein NEGATIVE (NEG); Urine pH 8.5 (5.0-7.0)
[2018-05-26 10:48] LABS: ALT/SGPT 18 U/L (12-78); AST/SGOT 15 U/L (15-37); Albumin 3.7 g/dL (3.4-5.0); Alkaline Phosphatase 74 U/L (45-117); BUN Blood Urea Nitrogen 8 mg/dL (7-18); Bicarbonate 27 mmol/L (21-32); Bilirubin Direct 0.1 mg/dL (0-0.2); Bilirubin Total 0.5 mg/dL (0.2-1.0); Glucose Level 90 mg/dL (74-106); Lipase 114 U/L (73-393); Protein, Total 6.9 g/dL (6.4-8.2); Sodium Level 140 mmol/L (136-145)
[2018-05-26 11:10] LABS: Urine Culture Reflex Order NOT NEEDED
[2018-05-26 11:11] LABS: Urine Bacteria <20 /HPF (<20); Urine RBC <5 /HPF (NONE SEEN)
[2018-05-26] MEDS ORDERED: PROMETHAZINE 25 MG/ML VIAL ONE ×2 (11:19→13:13)
--- NOTE | 2018-05-26 11:44 | RAD REPORT ---
EXAM DESCRIPTION: CTAbdomen Pelvis W Contrast - 05/26/2018 11:23 am CLINICAL HISTORY: Abdominal pain. ABD PAIN COMPARISON: No comparisons TECHNIQUE: Biphasic CT imaging of the abdomen and pelvis was performed with 100 ml non-ionic IV cont rast. All CT scans are performed using dose optimization technique as appropriate and may include automated exposure control or mA/KV adjustment according to patient size. FINDINGS: The lung bases are clear. The liver, spleen, pancreas, adrenal glands and kidneys are within normal limits. 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 There is significant distention of the stomach remnant and duoden um and proximal jejunum. No evidence of perforation. Small amount of fluid is present in the pelvis. No intra-abdominal abscess. No suspicious bony findings. IMPRESSION: Distended and fluid-filled bypassed stomach remnant, duodenum and proximal jejunal loops seen proximal to the jejunum-jejunum anastomosis in the left abdomen (image [id number]). This is compati ble with developing bowel obstruction related to adhesions or internal hernia.
--- NOTE | 2018-05-26 11:58 | ER ---
Nurse's Notes [facility] Name: Debbie Smith Age: 28 yrs Sex: Female : 1990 Arrival Date: 05/26/2018 Time: 09:45 Bed 13 Private MD: Tip Duran E Diagnosis: Small bowel obstruction Presentation: 05/26 09:59 Presenting complaint: Patient states: intermittent right upper quadrant pain that em started 0230 this morning described as dull then sharp, reports nausea, denies vomiting, fever. Transition of care: patient was not received from another setting of care. Onset of symptoms was May 26, 2018. Risk Assessment: Do you want to hurt yourself or someone else? Patient reports no desire to harm self or others. Initial Sepsis Screen: Does the patient meet any 2 criteria? No. Patient's initial sepsis screen is negative. Does the patient have a suspected source of infection? No. Patient's initial sepsis screen is negative. Care prior to arrival: None. 09:59 Method Of Arrival: Ambulatory em 10:06 Acuity: RENEA 3 iw Triage Assessment: 10:02 General: Appears in no apparent distress. uncomfortable, well groomed, well developed, em well nourished, Behavior is calm, cooperative. Pain: Complains of pain in right upper quadrant Pain currently is 7 out of 10 on a pain scale. GI: Abdomen is flat, Bowel sounds present X 4 quads. Abd is soft X 4 quads Abdomen is tender to palpation in right upper quadrant and left upper quadrant Reports nausea. 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 - Social history:: Smoking status: Patient/guardian denies using tobacco. - Ebola Screening: : Patient negative for fever greater than or equal to 101.5 degrees Fahrenheit, and additional compatible Ebola Virus Disease symptoms Patient denies exposure to infectious person Patient denies travel to an Ebola-affected area in the 21 days before illness onset No symptoms or risks identified at this time. Screenin:02 Abuse screen: Denies threats or abuse. Nutritional screening: No deficits noted. em Tuberculosis screening: No symptoms or risk factors identified. Fall Risk None identified. Assessment: 10:04 General: Appears in no apparent distress. uncomfortable, Behavior is calm, cooperative, em Denies fever. Pain: Complains of pain in right upper quadrant Pain does not radiate. Pain currently is 7 out of 10 on a pain scale. Pain began 0230 this morning. Neuro: Level of Consciousness is awake, alert, obeys commands, Oriented to person, place, time, situation. Cardiovascular: Capillary refill < 3 seconds Patient's skin is warm and dry. Respiratory: Airway is patent Respiratory effort is even, unlabored, Respiratory pattern is regular, symmetrical. GI: Abdomen is flat, Bowel sounds present X 4 quads. Abd is soft X 4 quads Abdomen is tender to palpation in right upper quadrant and left upper quadrant Reports upper abdominal pain, nausea, Patient currently denies diarrhea, vomiting. : Denies burning with urination. EENT: No signs and/or symptoms were reported regarding the EENT system. Derm: Skin is intact, is healthy with good turgor, Skin is pink, warm \T\ dry. Musculoskeletal: Range of motion: intact in all extremities. 10:41 Reassessment: Patient appears in no apparent distress at this time. Patient and/or em family updated on plan of care and expected duration. Pain level reassessed. Patient is alert, oriented x 3, equal unlabored respirations, skin warm/dry/pink. reports nausea and pain is unchanged, rates both 7/10. 11:43 Reassessment: Patient appears in no apparent distress at this time. Patient and/or em family updated on plan of care and expected duration. Pain level reassessed. Patient is alert, oriented x 3, equal unlabored respirations, skin warm/dry/pink. rates pain 6/10, nausea has improved. 12:51 Reassessment: Patient appears in no apparent distress at this time. Patient and/or em family updated on plan of care and expected duration. Pain level reassessed. Patient is alert, oriented x 3, equal unlabored respirations, skin warm/dry/pink. Patient states feeling better. 13:49 Reassessment: Patient appears in no apparent distress at this time. Patient and/or em family updated on plan of care and expected duration. Pain level reassessed. Patient is alert, oriented x 3, equal unlabored respirations, skin warm/dry/pink. advanced NG tube about 4-6 inches, pt tolerated well, denies pain, gastric contents suctioned. 13:55 Reassessment: unable to give report at this time, pt room is currently being occupied em by discharged pt, will call back in 30-60 min. 14:12 Reassessment: reports pain is coming back rates 8/10, provider notified, new medication em orders received. 14:55 Reassessment: report given to JASON Escamilla at [facility] [place] [facility]. em 15:28 Reassessment: Patient appears in no apparent distress at this time. Patient and/or em family updated on plan of care and expected duration. Pain level reassessed. Patient is alert, oriented x 3, equal unlabored respirations, skin warm/dry/pink. ambulated to restroom, pain is 3/10, pending EMS transportation. 15:28 Reassessment: withdrew NG tube approximately 3-4 inches, pt tolerated well, suction em D/C, NG tube in place. 15:56 Reassessment: Patient appears in no apparent distress at this time. Patient and/or em family updated on plan of care and expected duration. Pain level reassessed. Patient is alert, oriented x 3, equal unlabored respirations, skin warm/dry/pink. report given to EMS. Vital Signs: 10:02 BP 126 / 89; Pulse 66; Resp 18; Temp 98.3(O); Pulse Ox 100% on R/A; Weight 79.83 kg em (R); Height 5 ft. 8 in. (172.72 cm); Pain 7/10; 11:42 BP 112 / 68; Pulse 91; Resp 18; Pulse Ox 100% on R/A; Pain 6/10; em 13:00 BP 113 / 73; Pulse 103; Resp 18; Pulse Ox 100% on R/A; Pain 6/10; em 13:50 BP 113 / 72; Pulse 80; Resp 16; Temp 98.2(O); Pulse Ox 100% on R/A; Pain 3/10; em 14:47 BP 122 / 80; Pulse 70; Resp 18; Pulse Ox 99% on R/A; em 15:41 BP 116 / 76; Pulse 76; Resp 18; Pulse Ox 99% on R/A; Pain 3/10; em 10:02 Body Mass Index 26.76 (79.83 kg, 172.72 cm) em ED Course: 09:45 Patient arrived in ED. mr 09:45 Tip Duran MD is Private Physician. mr 09:49 Watson West, DUNIA is PHCP. pm1 09:49 Power Jeter MD is Attending Physician. pm1 09:52 Joselito Isidro LVN is Primary Nurse. em 10:02 Arm band placed on. em 10:05 Patient has correct armband on for positive identification. Placed in gown. Bed in low em position. Call light in reach. Side rails up X2. Pulse ox on. NIBP on. 10:06 Triage completed. iw 10:06 Radiology exam delayed due to lab results not completed at this time. (BUN/Creatinine). vm2 10:10 Initial lab(s) drawn, by me, sent to lab. Inserted saline lock: 20 gauge in right em antecubital area, using aseptic technique. Blood collected. 10:29 Radiology exam delayed due to lab results not completed at this time. (BUN/Creatinine). vm2 10:40 Radiology exam delayed due to lab results not completed at this time. (BUN/Creatinine). vm2 11:[address] via wheelchair. vm2 11:22 CT completed. Patient tolerated procedure well. Patient moved back from CT. vm2 11:23 CT Abd/Pelvis - W/Contrast: IV contrast only In Process Unspecified. EDMS 12:07 initiated a transfer with Blanca at the [facility] transfer center. eb 12:16 administrative approval given by Blanca Dunbar decal transferrer/ Dr. Jasbir Valentin has eb accepted the patient in transfer without conference / patient is pending a bed at this time. 12:55 NGT: inserted 14 Fr. via right nare. verified placement of air over stomach, verified em return of gastric contents, to intermittent suction. Returned bile. Patient tolerated well. 13:17 X-ray completed. Portable x-ray completed in exam room. Patient tolerated procedure jb2 well. 13:25 CXR XRAY In Process Unspecified. EDMS 14:29 X-ray completed. Portable x-ray completed in exam room. Patient tolerated procedure jb2 well. 14:36 CXR XRAY In Process Unspecified. EDMS 15:40 No provider procedures requiring assistance completed. Patient transferred, IV remains em in place. Administered Medications: 10:20 Drug: morphine 4 mg Route: IVP; Site: right antecubital; iw 10:41 Follow up: Response: No adverse reaction; Pain is unchanged, physician notified em 10:20 Drug: Zofran 4 mg Route: IVP; Site: right antecubital; iw 10:41 Follow up: Response: No adverse reaction; Pain is unchanged, physician notified em 10:20 Drug: NS 0.9% 1000 ml Route: IV; Rate: 1000 ml; Site: right antecubital; iw 13:00 Follow up: IV Status: Completed infusion; IV Intake: 1000ml em 11:10 Drug: Phenergan 12.5 mg Route: IVP; Site: right antecubital; iw 12:20 Follow up: Response: No adverse reaction; Nausea is decreased em 11:10 Drug: morphine 4 mg Route: IVP; Site: right antecubital; iw 12:21 Follow up: Response: No adverse reaction; Pain is decreased em 14:18 Drug: morphine 2 mg Route: IVP; Site: right antecubital; em 15:24 Follow up: Response: No adverse reaction; Pain is decreased em 15:20 Drug: NS 0.9% 1000 ml Route: IV; Rate: 125 ml/hr; Site: right antecubital; em 15:55 Follow up: IV Status: Infusion continued upon transfer; IV Intake: 50ml em 15:20 Drug: Zofran 4 mg Route: IVP; Site: right antecubital; em 15:55 Follow up: Response: No adverse reaction; Nausea is decreased em Intake: 13:00 IV: 1000ml; Total: 1000ml. em 15:55 IV: 50ml; Total: 1050ml. em Outcome: 11:57 ER care complete, transfer ordered by . pm1 15:40 Transferred by ground EMS to [facility], Transfer form completed. X-rays em sent w/ patient. 15:40 Condition: good 15:40 Instructed on the need for transfer, Demonstrated understanding of instructions. 15:56 Patient left the ED. em Signatures: Dispatcher [employer] EDMT Rudi, Marybel mr Trell Simons jb2 Joselito Isidro, COVER INSPECTOR COVER INSPECTOR Samantha Valdez, JASON RN Watson Morris, MACHINE SHORTHAND REPORTER MACHINE SHORTHAND REPORTER pm1 Zoe, Kae 2 Sandy Duffy
--- NOTE | 2018-05-26 11:58 | EDPHYS ---
Physician Documentation [facility] Name: Debbie Smith Age: 28 yrs Sex: Female : 1990 Arrival Date: 05/26/2018 Time: 09:45 Bed 13 Private MD: Tip Duran E ED Physician Power Jeter HPI: 05/26 10:30 This 28 yrs old Female presents to ER via Ambulatory with complaints of pm1 Abdominal Pain. 10:30 The patient presents with abdominal pain in the right upper quadrant. Onset: The pm1 symptoms/episode began/occurred this morning, at 02:30. The symptoms do not radiate. Associated signs and symptoms: Pertinent positives: nausea, Pertinent negatives: blood in stools, chest pain, diarrhea, dysuria, fever, shortness of breath, vomiting, vomiting blood. The symptoms are described as Dull then sharp. Modifying factors: The symptoms are alleviated by nothing, the symptoms are aggravated by nothing. Severity of pain: in the emergency department the pain is actually worse. The patient has not experienced similar symptoms in the past. The patient has not recently seen a physician, Patient had gastric bypass surgery by Dr. Jasbir Valentin at [facility] approximately 1 year ago. 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 - Social history:: Smoking status: Patient/guardian denies using tobacco. - Ebola Screening: : Patient negative for fever greater than or equal to 101.5 degrees Fahrenheit, and additional compatible Ebola Virus Disease symptoms Patient denies exposure to infectious person Patient denies travel to an Ebola-affected area in the 21 days before illness onset No symptoms or risks identified at this time. ROS: 10:30 Constitutional: Negative for fever, chills, and weight loss, Eyes: Negative for injury, pm1 pain, redness, and discharge, ENT: Negative for injury, pain, and discharge, Neck: Negative for injury, pain, and swelling, Cardiovascular: Negative for chest pain, palpitations, and edema, Respiratory: Negative for shortness of breath, cough, wheezing, and pleuritic chest pain. 10:30 Back: Negative for injury and pain, : Negative for injury, bleeding, discharge, and swelling, MS/Extremity: Negative for injury and deformity, Skin: Negative for injury, rash, and discoloration, Neuro: Negative for headache, weakness, numbness, tingling, and seizure. 10:30 Abdomen/GI: Positive for abdominal pain, nausea, Negative for vomiting, diarrhea, constipation. Exam: 10:30 Constitutional: This is a well developed, well nourished patient who is awake, alert, pm1 and in no acute distress. Head/Face: Normocephalic, atraumatic. Eyes: Pupils equal round and reactive to light, extra-ocular motions intact. Lids and lashes normal. Conjunctiva and sclera are non-icteric and not injected. Cornea within normal limits. Periorbital areas with no swelling, redness, or edema. ENT: Nares patent. No nasal discharge, no septal abnormalities noted. Tympanic membranes are normal and external auditory canals are clear. Oropharynx with no redness, swelling, or masses, exudates, or evidence of obstruction, uvula midline. Mucous membranes moist. Neck: Trachea midline, no thyromegaly or masses palpated, and no cervical lymphadenopathy. Supple, full range of motion without nuchal rigidity, or vertebral point tenderness. No Meningismus. Chest/axilla: Normal chest wall appearance and motion. Nontender with no deformity. No lesions are appreciated. Cardiovascular: Regular rate and rhythm with a normal S1 and S2. No gallops, murmurs, or rubs. Normal PMI, no JVD. No pulse deficits. Respiratory: Lungs have equal breath sounds bilaterally, clear to auscultation and percussion. No rales, rhonchi or wheezes noted. No increased work of breathing, no retractions or nasal flaring. 10:30 Back: No spinal tenderness. No costovertebral tenderness. Full range of motion. Skin: Warm, dry with normal turgor. Normal color with no rashes, no lesions, and no evidence of cellulitis. MS/ Extremity: Pulses equal, no cyanosis. Neurovascular intact. Full, normal range of motion. 10:30 Abdomen/GI: Inspection: abdomen appears normal, Bowel sounds: normal, Palpation: soft, mild abdominal tenderness, in the left upper quadrant, mass, is not appreciated, rebound tenderness, is not appreciated. 10:30 Neuro: Orientation: is normal, Motor: is normal, moves all fours, Sensation: is normal, no obvious gross deficits. Vital Signs: 10:02 BP 126 / 89; Pulse 66; Resp 18; Temp 98.3(O); Pulse Ox 100% on R/A; Weight 79.83 kg em (R); Height 5 ft. 8 in. (172.72 cm); Pain 7/10; 11:42 BP 112 / 68; Pulse 91; Resp 18; Pulse Ox 100% on R/A; Pain 6/10; em 13:00 BP 113 / 73; Pulse 103; Resp 18; Pulse Ox 100% on R/A; Pain 6/10; em 13:50 BP 113 / 72; Pulse 80; Resp 16; Temp 98.2(O); Pulse Ox 100% on R/A; Pain 3/10; em 14:47 BP 122 / 80; Pulse 70; Resp 18; Pulse Ox 99% on R/A; em 15:41 BP 116 / 76; Pulse 76; Resp 18; Pulse Ox 99% on R/A; Pain 3/10; em 10:02 Body Mass Index 26.76 (79.83 kg, 172.72 cm) em MDM: 09:49 Patient medically screened. pm1 11:54 Data reviewed: vital signs. Data interpreted: Pulse oximetry: on room air is 100 %. pm1 Interpretation: normal. Counseling: I had a detailed discussion with the patient and/or guardian regarding: the historical points, exam findings, and any diagnostic results supporting the discharge/admit diagnosis, lab results, radiology results, the need to transfer to another facility, for higher level of care. 12:22 ED course: Dr. Jasbir Valentin accepted the patient without report from me. He is currently pm1 in a surgical case. 15:15 ED course: Patient abdomen decompressed and nontender. 300 mL removed and based on pm1 gastric bypass, likely extent of decompression. Based on repeat X-ray for NG tube placement, NG tube is in proximal small bowel. Therefore will pull tube pulled back 2 inches and discontinue suction. Will leave NG tube in place for further use if needed. 05/26 09:58 Order name: Urine Microscopic Only; Complete Time: 11:27 pm1 05/26 10:03 Order name: Basic Metabolic Panel; Complete Time: 10:48 pm1 05/26 10:03 Order name: CBC with Diff; Complete Time: 10:37 pm1 05/26 10:03 Order name: Creatinine for Radiology; Complete Time: 10:48 pm1 05/26 10:03 Order name: Hepatic Function; Complete Time: 10:48 pm1 05/26 10:03 Order name: Lipase; Complete Time: 10:48 pm1 05/26 10:03 Order name: CT Abd/Pelvis - W/Contrast: IV contrast only; Complete Time: 11:48 pm1 05/26 10:04 Order name: Urine Dipstick--Ancillary (enter results); Complete Time: 10:48 eb 05/26 10:04 Order name: Urine --Ancillary (enter results); Complete Time: 10:48 eb 05/26 12:56 Order name: CXR XRAY; Complete Time: 13:36 em 05/26 14:02 Order name: CXR XRAY; Complete Time: 14:57 pm1 05/26 09:58 Order name: Urine Dipstick-Ancillary (obtain specimen); Complete Time: 10:06 pm1 05/26 09:58 Order name: Urine Test (obtain specimen); Complete Time: 10:06 pm1 05/26 10:03 Order name: IV Saline Lock; Complete Time: 10:28 pm1 05/26 10:03 Order name: Labs collected and sent; Complete Time: 10:28 pm1 05/26 12:26 Order name: NG Tube; Complete Time: 13:00 pm1 Administered Medications: 10:20 Drug: morphine 4 mg Route: IVP; Site: right antecubital; iw 10:41 Follow up: Response: No adverse reaction; Pain is unchanged, physician notified em 10:20 Drug: Zofran 4 mg Route: IVP; Site: right antecubital; iw 10:41 Follow up: Response: No adverse reaction; Pain is unchanged, physician notified em 10:20 Drug: NS 0.9% 1000 ml Route: IV; Rate: 1000 ml; Site: right antecubital; iw 13:00 Follow up: IV Status: Completed infusion; IV Intake: 1000ml em 11:10 Drug: Phenergan 12.5 mg Route: IVP; Site: right antecubital; iw 12:20 Follow up: Response: No adverse reaction; Nausea is decreased em 11:10 Drug: morphine 4 mg Route: IVP; Site: right antecubital; iw 12:21 Follow up: Response: No adverse reaction; Pain is decreased em 14:18 Drug: morphine 2 mg Route: IVP; Site: right antecubital; em 15:24 Follow up: Response: No adverse reaction; Pain is decreased em 15:20 Drug: NS 0.9% 1000 ml Route: IV; Rate: 125 ml/hr; Site: right antecubital; em 15:55 Follow up: IV Status: Infusion continued upon transfer; IV Intake: 50ml em 15:20 Drug: Zofran 4 mg Route: IVP; Site: right antecubital; em 15:55 Follow up: Response: No adverse reaction; Nausea is decreased em Disposition: 05/26/18 11:57 Transfer ordered to [facility]. Diagnosis is Small bowel obstruction. - Reason for transfer: Higher level of care. - Accepting physician is Arnulfo Mao. - Condition is Stable. - Problem is new. - Symptoms have improved. Addendum: 05/31/2018 11:58 Co-signature as Attending Physician, Power Jeter MD I agree with the assessment and k dr plan of care. Signatures: Dispatcher [employer] Power Funes MD MD [facility] Joselito Isidro, SAFE TECHNICIAN SAFE TECHNICIAN em Samantha Castro, RN RN iw Watson West, RURAL MAIL CONTRACTOR RURAL MAIL CONTRACTOR pm1 Corrections: (The following items were deleted from the chart) 05/26 11:57 11:57 05/26/2018 11:57 Transfer ordered to [facility]. Diagnosis is pm1 Bowel obstruction. Reason for transfer: Higher level of care. Accepting physician is Arnulfo Mao. Condition is Stable. Problem is new. Symptoms have improved. pm1 15:56 11:57 05/26/2018 11:57 Transfer ordered to [facility]. Diagnosis is em Small bowel obstruction. Reason for transfer: Higher level of care. Accepting physician is Arnulfo Mao. Condition is Stable. Problem is new. Symptoms have improved. pm1
[2018-05-26] MEDS ORDERED: LIDOCAINE VISCOUS 2% SOLN 15 ML UDC ONE (12:53)
--- NOTE | 2018-05-26 13:31 | RAD REPORT ---
EXAM DESCRIPTION: RAD - Chest Single View - 05/26/2018 1:25 pm CLINICAL HISTORY: NG tube placement, abdominal pain COMPARISON: None. TECHNIQUE: AP portable chest image was obtained 1319 hours . FINDINGS: Single image was obtained of the upper abdomen and lower chest. Gas-filled stomach bubble is identified. NG tube tip is at the GE junction. Tube does not extend into the lumen of the stomach.
[2018-05-26] MEDS ORDERED: MORPHINE 2 MG/ML SYR ONE (14:23)
--- NOTE | 2018-05-26 14:56 | RAD REPORT ---
EXAM DESCRIPTION: RAD - Chest Single View - 05/26/2018 2:35 pm CLINICAL HISTORY: NG tube placed COMPARISON: Chest/KUB film May 26, CT study May 26 TECHNIQUE: AP portable imaging was obtained 1424 hours . Exam is centered on the lower chest and upp er abdomen. FINDINGS: NG tube has been advanced. Positioning was reviewed and correlated with the CT study. Maxime tional information has become available indicating the patient has a gastric bypass. The tip and side hole of the NG tube are in the mid upper abdomen. Based on the CT review, the NG tube follows the co urse of the bypass from the esophagus into the small gastric pouch and then extending into the proxim al small bowel. The bypassed main body of the stomach shows air in fluid distention. The NG tube does not communicate with this portion of the stomach. IMPRESSION: Tip of the NG tube and side hole of the tubing are present in proximal small bowel. The NG tube follows the esophagus, through the small gastric pouch and then into the proximal small bowel . The fluid and air distended bypassed main portion of the stomach does not communicate with the NG tub e.
== END 2018-05-26 15:56 | disposition short-term general hospital (02) ==
LOC: ER 09:39
DX: K56.609 Unspecified intestinal obstruction, unspecified as to partial versus complete obstruction (principal); Z98.84 Bariatric surgery status
CPT/HCPCS: 36415; 71045; 74177; 80048; 80076; 81003; 81015; 81025; 83690; 85025; 96361; 96374; 96375; 99285; J2270; J2405; J2550; J7030; Q9967